=== PATIENT | female | born 1960 | race Caucasian/White ===

== ENCOUNTER 2025-08-29 08:44 | Outpatient (CLI) | payer MEDICAID ==
[~2025-08-29 08:44] MED LIST: CRANBERRY PO; HYDROXYZINE PO; MULT-620 PO; VENL75TA PO; ZOLP5TAB19 PO; seroquel
--- NOTE | 2025-08-29 09:26 | RADIOLOGY REPORT ---
EXAM: CT CT ABDOMEN PELVIS INDICATION: CALCULUS OF KIDNEY TECHNIQUE: Volumetric multidetector CT images of the abdomen and pelvis were obtained without contrast. All CT scans at this facility use dose modulation, iterative reconstruction, and/or weight based dosing when appropriate to reduce radiation dose to as low as reasonably achievable. COMPARISON: None FINDINGS: [LOWER CHEST]: Atelectasis in the right lung base. Inconspicuous small oval- shaped area of ground-glass in the left lung base measuring 2 mm, likely benign. The cardiac size is normal without pericardial effusion. [LIVER]: Normal hepatic size without suspicious focal lesion. [GALLBLADDER AND BILIARY TREE]: No cholelithiasis. [SPLEEN]: Unremarkable. [PANCREAS]: Unremarkable. [ADRENAL GLANDS]: Minimal left adrenal gland thickening without discrete mass correlate for adrenal hyperplasia. [KIDNEYS]: no hydronephrosis or visualized nephroureterolithiasis. No suspicious focal lesion. [BLADDER]: Mild circumferential bladder wall thickening despite decompression correlate with clinical exam correlate with urinalysis. [REPRODUCTIVE ORGANS]: Unremarkable. [BOWEL/MESENTERY]: Stomach is normal. No CT evidence of bowel obstruction. [ASCITES]: Absent [LYMPHADENOPATHY]: No pathologically enlarged lymph nodes by CT size criteria [VASCULATURE]: No aneurysmal dilatation. [ABDOMINAL WALL]: Postsurgical changes along the anterior abdominal wall compatible with prior abdominal hernia repair. [MUSCULOSKELETAL]: No acute fracture or aggressive focal osseous lesion. Opposing endplate degenerative change at T11-12 with sclerosis. Multifocal degenerative change of the visualized spine. IMPRESSION: 1. No hydronephrosis or visualized nephroureterolithiasis. 2. Mild circumferential bladder wall thickening despite decompression correlate with clinical exam correlate with urinalysis.
== END 2025-08-29 23:59 | disposition home or self-care (01) ==
LOC: RAD 08:44
PROVIDERS: ATTEND Family Medicine
DX: N20.0 Calculus of kidney (principal); N32.89 Other specified disorders of bladder; M47.815 Spondylosis without myelopathy or radiculopathy, thoracolumbar region
CPT/HCPCS: 74176